=== PATIENT | female | born 1975 | race Caucasian/White ===

== ENCOUNTER 2018-06-03 12:12 | Emergency (ER) | payer OTHER ==
--- NOTE | 2018-06-03 12:40 | ED ---
Extremity Problem HPI - General Chief complaint: Extremity Problem,Nontraumatic Stated complaint: Extremity pain Time Seen by Provider: 06/03/18 12:18 Source: patient Mode of arrival: ambulatory Limitations: no limitations - History of Present Illness Initial comments: 43-year-old female presents for bilateral upper and lower extremity neuropathy- like symptoms for last 3-4 weeks. Patient states it started with tingling in her hands and now more of a burning sensation in her hands mainly in the first and second digits along with her toes. Patient states it's painful to do any activity especially ambulation. Patient states it does worsen she is sleeping but does happen throughout the day. Patient arty the family doctor for these symptoms and had a blood workup. Patient was put on vitamins. Patient does have a history of iron deficiency anemia. Patient denies any changes to her medications. Patient denies diabetic history. No chest pain or shortness of breath patient has lost about 6 pounds in the last 4 months as well. Patient had her thyroid tested which was normal per patient. - Related Data Home Medications Medication Instructions Recorded Confirmed busPIRone HCl [Buspar] 15 mg PO DAILY 03/08/15 03/08/15 Allergies Allergy/AdvReac Type Severity Reaction Status Date / Time citalopram hydrobromide AdvReac Nausea & Verified 06/03/18 12:16 [From Celexa] Vomiting Review of Systems ROS Statement: Those systems with pertinent positive or pertinent negative responses have been documented in the HPI. ROS Other: All systems not noted in ROS Statement are negative. Past Medical History Past Medical History: Hypertension History of Any Multi-Drug Resistant Organisms: None Reported Past Surgical History: Hernia Repair Additional Past Surgical History / Comment(s): dental surgery Past Psychological History: Anxiety Smoking Status: Current every day smoker Past Alcohol Use History: Daily Past Drug Use History: Marijuana General Exam Limitations: no limitations General appearance: alert, in no apparent distress Eye exam: Present: normal appearance, PERRL, EOMI. Absent: scleral icterus, conjunctival injection, periorbital swelling ENT exam: Present: normal exam, mucous membranes moist Neck exam: Present: normal inspection. Absent: tenderness, meningismus, lymphadenopathy Respiratory exam: Present: normal lung sounds bilaterally. Absent: respiratory distress, wheezes, rales, rhonchi, stridor Cardiovascular Exam: Present: regular rate, normal rhythm, normal heart sounds. Absent: systolic murmur, diastolic murmur, rubs, gallop, clicks GI/Abdominal exam: Present: soft, normal bowel sounds. Absent: distended, tenderness, guarding, rebound, rigid Extremities exam: Present: normal inspection, full ROM, normal capillary refill. Absent: tenderness, pedal edema, joint swelling, calf tenderness Back exam: Present: normal inspection Neurological exam: Present: alert, oriented X3, CN II-XII intact, reflexes normal Expanded Patient oriented to: Present: person, place, time Sensory exam: Upper Extremity Light Touch: Normal, Upper Extremity Temperature: Normal, UE 2 Point Discrimination: Normal, Lower Extremity Light Touch: Normal, Lower Extremity Temperature: Normal, LE 2 Point Discrimination: Normal Motor strength exam: RUE: 3, LUE: 3, RLE: 3, LLE: 3 DTR: Brachioradialis (R): 2+, Brachioradialis (L): 2+, Patellar (R): 2+, Patellar (L): 2+ Eye Response: (4) open spontaneously Motor Response: (6) obeys commands Verbal Response: (5) oriented Psychiatric exam: Present: normal affect, normal mood Skin exam: Present: warm, dry, intact, normal color. Absent: rash Course Vital Signs 06/03/18 12:13 Temperature 97.9 F Pulse Rate 94 Respiratory 18 Rate Blood Pressure 135/94 O2 Sat by Pulse 98 Oximetry Medical Decision Making - Medical Decision Making discussed with dr. Guido. After reviewing labs patient will work on increasing her magnesium and taking it regularly. Patient to get her labs drawn on an outp atient basis with her family doctor in the next month to see if her electrolytes and calcium have stabilized. Patient to follow-up with family doctor and get a neurologist to see her may need an EMG in the near future. Patient understands and agrees with plan of care return if symptoms are worsening. - Lab Data Result diagrams: 06/03/18 12:30 06/03/18 12:30 Lab Results 06/03/18 06/03/18 06/03/18 Range/Units 12:30 12:30 12:30 WBC 8.2 (3.8-10.6) k/uL RBC 3.93 (3.80-5.40) m/uL Hgb 13.7 (11.4-16.0) gm/dL Hct 39.3 (34.0-46.0) % MCV 100.0 (80.0-100.0) fL MCH 34.9 (25.0-35.0) pg MCHC 34.9 (31.0-37.0) g/dL RDW 15.2 (11.5-15.5) % Plt Count 248 (150-450) k/uL Neutrophils % 69 % Lymphocytes % 21 % Monocytes % 5 % Eosinophils % 2 % Basophils % 1 % Neutrophils # 5.7 (1.3-7.7) k/uL Lymphocytes # 1.8 (1.0-4.8) k/uL Monocytes # 0.4 (0-1.0) k/uL Eosinophils # 0.2 (0-0.7) k/uL Basophils # 0.1 (0-0.2) k/uL Macrocytosis Slight Sodium 143 (137-145) mmol/L Potassium 3.5 (3.5-5.1) mmol/L Chloride 108 H (98-107) mmol/L Carbon Dioxide 21 L (22-30) mmol/L Anion Gap 14 mmol/L BUN 11 (7-17) mg/dL Creatinine 0.84 (0.52-1.04) mg/dL Est GFR (CKD-EPI)AfAm >90 (>60 ml/min/1.73 sqM) Est GFR (CKD-EPI)NonAf 85 (>60 ml/min/1.73 sqM) Glucose 87 (74-99) mg/dL Plasma Lactic Acid Delroy (0.7-2.0) mmol/L Calcium 11.0 H (8.4-10.2) mg/dL Magnesium 1.0 L (1.6-2.3) mg/dL Total Bilirubin 0.9 (0.2-1.3) mg/dL AST 64 H (14-36) U/L ALT 38 (9-52) U/L Alkaline Phosphatase 125 (38-126) U/L Total Protein 7.4 (6.3-8.2) g/dL Albumin 3.7 (3.5-5.0) g/dL Urine Color Yellow Urine Appearance Cloudy H (Clear) Urine pH 6.0 (5.0-8.0) Ur Specific [place] 1.021 (1.001-1.035) Urine Protein 1+ H (Negative) Urine Glucose (UA) Negative (Negative) Urine Ketones 1+ H (Negative) Urine Blood Negative (Negative) Urine Nitrite Negative (Negative) Urine Bilirubin Negative (Negative) Urine Urobilinogen 2.0 (<2.0) mg/dL Ur Leukocyte Esterase Negative (Negative) Urine WBC 12 H (0-5) /hpf Ur Squamous Epith Cells 4 (0-4) /hpf Urine Bacteria Rare H (None) /hpf Cellular Casts 7 (0) /lpf Hyaline Casts 31 H (0-2) /lpf Urine Mucus Occasional H (None) /hpf Urine HCG, Qual (Not Detectd) Urine Opiates Screen Not Detected (NotDetected) Ur Oxycodone Screen Not Detected (NotDetected) Urine Methadone Screen Not Detected (NotDetected) Ur Propoxyphene Screen Not Detected (NotDetected) Ur Barbiturates Screen Not Detected (NotDetected) U Tricyclic Antidepress Not Detected (NotDetected) Ur Phencyclidine Scrn Not Detected (NotDetected) Ur Amphetamines Screen Not Detected (NotDetected) U Methamphetamines Scrn Not Detected (NotDetected) U Benzodiazepines Scrn Detected H (NotDetected) Urine Cocaine Screen Not Detected (NotDetected) U Marijuana (THC) Screen Detected H (NotDetected) 06/03/18 06/03/18 Range/Units 12:30 12:30 WBC (3.8-10.6) k/uL RBC (3.80-5.40) m/uL Hgb (11.4-16.0) gm/dL Hct (34.0-46.0) % MCV (80.0-100.0) fL MCH (25.0-35.0) pg MCHC (31.0-37.0) g/dL RDW (11.5-15.5) % Plt Count (150-450) k/uL Neutrophils % % Lymphocytes % % Monocytes % % Eosinophils % % Basophils % % Neutrophils # (1.3-7.7) k/uL Lymphocytes # (1.0-4.8) k/uL Monocytes # (0-1.0) k/uL Eosinophils # (0-0.7) k/uL Basophils # (0-0.2) k/uL Macrocytosis Sodium (137-145) mmol/L Potassium (3.5-5.1) mmol/L Chloride (98-107) mmol/L Carbon Dioxide (22-30) mmol/L Anion Gap mmol/L BUN (7-17) mg/dL Creatinine (0.52-1.04) mg/dL Est GFR (CKD-EPI)AfAm (>60 ml/min/1.73 sqM) Est GFR (CKD-EPI)NonAf (>60 ml/min/1.73 sqM) Glucose (74-99) mg/dL Plasma Lactic Acid Delroy 1.1 (0.7-2.0) mmol/L Calcium (8.4-10.2) mg/dL Magnesium (1.6-2.3) mg/dL Total Bilirubin (0.2-1.3) mg/dL AST (14-36) U/L ALT (9-52) U/L Alkaline Phosphatase (38-126) U/L Total Protein (6.3-8.2) g/dL Albumin (3.5-5.0) g/dL Urine Color Urine Appearance (Clear) Urine pH (5.0-8.0) Ur Specific [place] (1.001-1.035) Urine Protein (Negative) Urine Glucose (UA) (Negative) Urine Ketones (Negative) Urine Blood (Negative) Urine Nitrite (Negative) Urine Bilirubin (Negative) Urine Urobilinogen (<2.0) mg/dL Ur Leukocyte Esterase (Negative) Urine WBC (0-5) /hpf Ur Squamous Epith Cells (0-4) /hpf Urine Bacteria (None) /hpf Cellular Casts (0) /lpf Hyaline Casts (0-2) /lpf Urine Mucus (None) /hpf Urine HCG, Qual Not Detected (Not Detectd) Urine Opiates Screen (NotDetected) Ur Oxycodone Screen (NotDetected) Urine Methadone Screen (NotDetected) Ur Propoxyphene Screen (NotDetected) Ur Barbiturates Screen (NotDetected) U Tricyclic Antidepress (NotDetected) Ur Phencyclidine Scrn (NotDetected) Ur Amphetamines Screen (NotDetected) U Methamphetamines Scrn (NotDetected) U Benzodiazepines Scrn (NotDetected) Urine Cocaine Screen (NotDetected) U Marijuana (THC) Screen (NotDetected) Disposition Clinical Impression: Neuropathy, Hypomagnesemia, Hypercalcemia Disposition: HOME SELF-CARE Condition: Good Additional Instructions: pt may need to f/u with neurology and may need EMG. pt to have f/u lab with pcp on outpatient basis Is patient prescribed a controlled substance at d/c from ED?: No Referrals: Berhane Beasley DO [Primary Care Provider] - 1-2 days Time of Disposition: 14:04
[2018-06-03 13:10] LABS: Basophils # (A) 0.1 k/uL (0-0.2); Basophils % (A) 1 %; Eosinophils # (A) 0.2 k/uL (0-0.7); Eosinophils % (A) 2 %; HCT 39.3 % (34.0-46.0); HGB 13.7 gm/dL (11.4-16.0); Lymphocytes # (A) 1.8 k/uL (1.0-4.8); Lymphocytes % (A) 21 %; MCH 34.9 pg (25.0-35.0); MCHC 34.9 g/dL (31.0-37.0); Macrocytosis Slight; Mean Platelet Volume 12.2; Monocytes # (A) 0.4 k/uL (0-1.0); Monocytes % (A) 5 %; Neutrophils # (A) 5.7 k/uL (1.3-7.7); Neutrophils % (A) 69 %; Platelet Count 248 k/uL (150-450); RBC 3.93 m/uL (3.80-5.40); RDW 15.2 % (11.5-15.5); WBC 8.2 k/uL (3.8-10.6)
[2018-06-03 13:29] LABS: ALT 38 U/L (9-52); AST 64 U/L (14-36); Albumin 3.7 g/dL (3.5-5.0); Alkaline Phosphatase 125 U/L (38-126); Anion Gap 14 mmol/L; Blood Urea Nitrogen 11 mg/dL (7-17); Carbon Dioxide 21 mmol/L (22-30); Chloride 108 mmol/L (98-107); Glucose 87 mg/dL (74-99); Potassium 3.5 mmol/L (3.5-5.1); Sodium 143 mmol/L (137-145); Total Bilirubin 0.9 mg/dL (0.2-1.3); Total Protein 7.4 g/dL (6.3-8.2)
[2018-06-03 13:31] LABS: Appearance,Urine Cloudy (Clear); Bacteria,Urine Rare /hpf; Bilirubin,Urine Negative (Negative); Blood,Urine Negative (Negative); Cellular Casts,Urine 7 /lpf (0); Color,Urine Yellow; Glucose,Urine (UA) Negative (Negative); Hyaline Casts,Urine 31 /lpf (0-2); Ketones,Urine 1+ (Negative); Leukocyte Esterase,Urine Negative (Negative); Mucus,Urine Occasional /hpf; Nitrite,Urine Negative (Negative); Protein,Urine 1+ (Negative); Specific Gravity,Urine 1.021 (1.001-1.035); Squamous Epithelial Cell,Urine 4 /hpf (0-4); WBC,Urine 12 /hpf (0-5)
[2018-06-03 13:33] LABS: Amphetamine Screen,Urine Not Detected (NotDetected); Barbiturate Screen,Urine Not Detected (NotDetected); Benzodiazepines Screen,Urine Detected (NotDetected); Cocaine Screen,Urine Not Detected (NotDetected); Methadone Screen, Urine Not Detected (NotDetected); Opiate Screen,Urine Not Detected (NotDetected); Oxycodone Screen, Urine Not Detected (NotDetected); Phencyclidine Screen,Urine Not Detected (NotDetected); Tricyclic Antidepressant,Urine Not Detected (NotDetected); Urn Cannabinoid Scrn Detected (NotDetected)
[2018-06-03 14:29] VITALS: BP 132/86; PULSE 81; RESP 16; TEMP 98.2
[2018-06-03 22:58] LABS: Vitamin D 25 Hydroxy 31.9 ng/mL (30.0-100.0)
== END 2018-06-03 14:28 | disposition home or self-care (01) ==
LOC: EC 12:12
DX: G62.9 Polyneuropathy, unspecified (principal); E83.42 Hypomagnesemia; E83.52 Hypercalcemia; F41.9 Anxiety disorder, unspecified; F17.200 Nicotine dependence, unspecified, uncomplicated; Z88.8 Allergy status to other drugs, medicaments and biological substances; Z79.899 Other long term (current) drug therapy; Z86.2 Personal history of diseases of the blood and blood-forming organs and certain disorders involving the immune mechanism
CPT/HCPCS: 36415; 80053; 80306; 81001; 81025; 82306; 82607; 83605; 83735; 85025; 87077; 87086; 87186; 99283

== ENCOUNTER 2018-08-26 21:58 | Inpatient (IN) | payer OTHER ==
[2018-08-26] MEDS ORDERED: SODIUM CHLORIDE 0.9% 1,000 ML IV ONE (22:36)
[2018-08-26] MEDS ORDERED: KETOROLAC 30 MG/ML 1 ML VIAL IVP STA (22:36)
[2018-08-26] MEDS ORDERED: ONDANSETRON 4 MG/2 ML VIAL IVP STA (22:36)
[2018-08-26 22:48] LABS: Appearance,Urine Clear (Clear); Bilirubin,Urine Negative (Negative); Blood,Urine Negative (Negative); Color,Urine Yellow; Glucose,Urine (UA) Negative (Negative); Ketones,Urine Negative (Negative); Leukocyte Esterase,Urine Negative (Negative); Nitrite,Urine Negative (Negative); Protein,Urine Negative (Negative); Specific Gravity,Urine 1.007 (1.001-1.035); Urobilinogen,Urine <2.0 mg/dL (<2.0)
[2018-08-26 23:08] LABS: Basophils # (A) 0.1 k/uL (0-0.2); Basophils % (A) 0 %; Eosinophils # (A) 0.7 k/uL (0-0.7); Eosinophils % (A) 4 %; Lymphocytes # (A) 2.3 k/uL (1.0-4.8); Lymphocytes % (A) 12 %; MCH 34.3 pg (25.0-35.0); MCHC 33.4 g/dL (31.0-37.0); MCV 102.7 fL (80.0-100.0); Macrocytosis Slight; Mean Platelet Volume 7.2; Monocytes # (A) 1.3 k/uL (0-1.0); Monocytes % (A) 7 %; Neutrophils # (A) 14.6 k/uL (1.3-7.7); Neutrophils % (A) 76 %; Platelet Count 475 k/uL (150-450); RBC 4.09 m/uL (3.80-5.40); RDW 12.9 % (11.5-15.5); WBC 19.2 k/uL (3.8-10.6)
[2018-08-26 23:19] LABS: African American GFR (CKD) >90 (>60 ml/min/1.73 sqM); Anion Gap 11 mmol/L; Blood Urea Nitrogen 8 mg/dL (7-17); Calcium 8.6 mg/dL (8.4-10.2); Carbon Dioxide 22 mmol/L (22-30); Chloride 107 mmol/L (98-107); Glucose 127 mg/dL (74-99); Potassium 3.6 mmol/L (3.5-5.1); Sodium 140 mmol/L (137-145)
--- NOTE | 2018-08-26 23:23 | ED ---
Abdominal Pain HPI - General Chief Complaint: Abdominal Pain Stated Complaint: Flank pain Time Seen by Provider: 08/26/18 22:26 Source: patient Mode of arrival: ambulatory Limitations: no limitations - History of Present Illness Initial Comments: 43-year-old female presenting with left flank pain that began 3 weeks prior. Patient states she recalled moving a potted plant outside. 2 days later she began to develop left-sided flank pain that is worsened with movement, improved but not alleviated with Aleve, it is accompanied by intermittent sporadic nausea and vomiting. The pain is sharp, stabbing, radiating to her left shoulder. She denies any fevers, chills, chest pain. She denies any urinary symptoms, constipation, diarrhea, history of inflammatory bowel disease, vaginal bleeding or vaginal discharge. Denies any similar symptoms in the past. - Related Data Home Medications Medication Instructions Recorded Confirmed ALPRAZolam [Xanax] 0.25 mg PO BID 08/26/18 08/26/18 Ferrous Sulfate [Slow Release Iron] 140 mg PO DAILY 08/26/18 08/26/18 Folic Acid 1 mg PO DAILY 08/26/18 08/26/18 Gabapentin [Neurontin] 300 mg PO HS 08/26/18 08/26/18 Magnesium Oxide [Mag-Ox] 400 mg PO DAILY 08/26/18 08/26/18 Metoprolol Tartrate [Lopressor] 50 mg PO BID 08/26/18 08/26/18 Vitamin B Complex 1 cap PO DAILY 08/26/18 08/26/18 tiZANidine [Zanaflex] 4 mg PO Q8HR PRN 08/26/18 08/26/18 Allergies Allergy/AdvReac Type Severity Reaction Status Date / Time citalopram hydrobromide AdvReac Nausea & Verified 08/26/18 22:54 [From Celexa] Vomiting Review of Systems ROS Statement: Those systems with pertinent positive or pertinent negative responses have been documented in the HPI. Review of Systems Constitutional: Denies fever, chills Eyes: Denies change in vision, Denies pain Ears, nose, mouth, throat: Denies headaches, Denies sore throat Cardiovascular: Denies chest pain. Denies palpitations Respiratory: Denies shortness of breath, Denies cough Gastrointestinal: Positive abdominal pain. Positive nausea, vomiting, denies diarrhea. Genitourinary: Denies hematuria, Denies infections Musculoskeletal: Denies pain, Denies swelling Integumentary: Denies rash Neurological: Denies headache, focal weakness, focal numbness Psychiatric: Denies anxiety, Denies depression Hematologic/Lymphatic: Denies easy bleeding or bruising ROS Other: All systems not noted in ROS Statement are negative. Past Medical History Past Medical History: Hypertension Additional Past Medical History / Comment(s): neurpathy possibly, History of Any Multi-Drug Resistant Organisms: None Reported Past Surgical History: Hernia Repair Additional Past Surgical History / Comment(s): dental surgery, Past Psychological History: Anxiety Smoking Status: Current every day smoker Past Alcohol Use History: Rare Past Drug Use History: Marijuana - Past Family History Mother Family Medical History: Hypertension Father Family Medical History: No Reported History General Exam - General Exam Comments Initial Comments: General: Awake, alert, No acute Distress HENT: Normocephalic. Atraumatic Eyes: PERRL. EOMI. No scleral icterus. No injected conjunctiva Neck: Full ROM Chest/Lungs: Clear to auscultation bilaterally. No wheezing, rhonchi, or rales Cardiac: Sinus tachycardia No murmurs or rubs Abdomen/GI: Soft, nontender, nondistended. No rebound, guarding, or rigidity. Left CVA tenderness. Positive Patrick sign Musculoskeletal: Full ROM Skin: Warm, dry, intact Neurologic: A/Ox3, no weakness, no sensory deficit, no abnormal gait, no coordination deficit Limitations: no limitations Course Vital Signs 08/26/18 08/27/18 08/27/18 22:16 02:51 04:43 Temperature 98.5 F 98.4 F 98.3 F Pulse Rate 118 H 108 H 82 Respiratory 18 17 18 Rate Blood Pressure 114/83 133/93 128/78 O2 Sat by Pulse 98 98 97 Oximetry Medical Decision Making - Medical Decision Making 43-year-old female presenting with abdominal pain and flank pain. This exam patient is tachycardic but her vital signs are otherwise stable. Patient is perk positive with a well score 1.5. She is complaining of pleuritic pain leading to her left shoulder. Abdomen very workup revealed a markedly leukocytosis as well as a d-dimer of 10.35. Patient's UA was negative for infectious process. Her lactate was 1.6. She underwent CT imaging of her abdomen as well as CTA of her chest. The remainder of her care will be followed by the overnight physician. It was reported to me that the patient's CT abdomen and pelvis showed multiple fluid collections including one on the pancreas as well as ascites and a subscapular splenic hematoma. Dr. Shah with surgery construction site manager who is okay with admitting the patient to this facility. - Lab Data Result diagrams: 08/26/18 23:00 08/26/18 23:00 Lab Results 08/26/18 08/26/18 08/26/18 Range/Units 22:22 22:22 23:00 WBC (3.8-10.6) k/uL RBC (3.80-5.40) m/uL Hgb (11.4-16.0) gm/dL Hct (34.0-46.0) % MCV (80.0-100.0) fL MCH (25.0-35.0) pg MCHC (31.0-37.0) g/dL RDW (11.5-15.5) % Plt Count (150-450) k/uL Neutrophils % % Lymphocytes % % Monocytes % % Eosinophils % % Basophils % % Neutrophils # (1.3-7.7) k/uL Lymphocytes # (1.0-4.8) k/uL Monocytes # (0-1.0) k/uL Eosinophils # (0-0.7) k/uL Basophils # (0-0.2) k/uL Macrocytosis PT (9.0-12.0) sec INR (<1.2) D-Dimer (<0.60) mg/L FEU Sodium 140 (137-145) mmol/L Potassium 3.6 (3.5-5.1) mmol/L Chloride 107 (98-107) mmol/L Carbon Dioxide 22 (22-30) mmol/L Anion Gap 11 mmol/L BUN 8 (7-17) mg/dL Creatinine 0.49 L (0.52-1.04) mg/dL Est GFR (CKD-EPI)AfAm >90 (>60 ml/min/1.73 sqM) Est GFR (CKD-EPI)NonAf >90 (>60 ml/min/1.73 sqM) Glucose 127 H (74-99) mg/dL Plasma Lactic Acid Delroy (0.7-2.0) mmol/L Calcium 8.6 (8.4-10.2) mg/dL Total Bilirubin (0.2-1.3) mg/dL Conjugated Bilirubin (0.0-0.3) mg/dL Unconjugated Bilirubin (0.0-1.1) mg/dL Delta Bilirubin (0.0-0.2) mg/dL AST (14-36) U/L ALT (9-52) U/L Alkaline Phosphatase (38-126) U/L Total Protein (6.3-8.2) g/dL Albumin (3.5-5.0) g/dL Lipase (23-300) U/L Urine Color Yellow Urine Appearance Clear (Clear) Urine pH 6.0 (5.0-8.0) Ur Specific [place] 1.007 (1.001-1.035) Urine Protein Negative (Negative) Urine Glucose (UA) Negative (Negative) Urine Ketones Negative (Negative) Urine Blood Negative (Negative) Urine Nitrite Negative (Negative) Urine Bilirubin Negative (Negative) Urine Urobilinogen <2.0 (<2.0) mg/dL Ur Leukocyte Esterase Negative (Negative) Urine HCG, Qual Not Detected (Not Detectd) 08/26/18 08/26/18 08/26/18 Range/Units 23:00 23:00 23:00 WBC 19.2 H (3.8-10.6) k/uL RBC 4.09 (3.80-5.40) m/uL Hgb 14.0 (11.4-16.0) gm/dL Hct 42.0 (34.0-46.0) % MCV 102.7 H (80.0-100.0) fL MCH 34.3 (25.0-35.0) pg MCHC 33.4 (31.0-37.0) g/dL RDW 12.9 (11.5-15.5) % Plt Count 475 H (150-450) k/uL Neutrophils % 76 % Lymphocytes % 12 % Monocytes % 7 % Eosinophils % 4 % Basophils % 0 % Neutrophils # 14.6 H (1.3-7.7) k/uL Lymphocytes # 2.3 (1.0-4.8) k/uL Monocytes # 1.3 H (0-1.0) k/uL Eosinophils # 0.7 (0-0.7) k/uL Basophils # 0.1 (0-0.2) k/uL Macrocytosis Slight PT (9.0-12.0) sec INR (<1.2) D-Dimer 10.35 H (<0.60) mg/L FEU Sodium (137-145) mmol/L Potassium (3.5-5.1) mmol/L Chloride (98-107) mmol/L Carbon Dioxide (22-30) mmol/L Anion Gap mmol/L BUN (7-17) mg/dL Creatinine (0.52-1.04) mg/dL Est GFR (CKD-EPI)AfAm (>60 ml/min/1.73 sqM) Est GFR (CKD-EPI)NonAf (>60 ml/min/1.73 sqM) Glucose (74-99) mg/dL Plasma Lactic Acid Delroy 1.6 (0.7-2.0) mmol/L Calcium (8.4-10.2) mg/dL Total Bilirubin (0.2-1.3) mg/dL Conjugated Bilirubin (0.0-0.3) mg/dL Unconjugated Bilirubin (0.0-1.1) mg/dL Delta Bilirubin (0.0-0.2) mg/dL AST (14-36) U/L ALT (9-52) U/L Alkaline Phosphatase (38-126) U/L Total Protein (6.3-8.2) g/dL Albumin (3.5-5.0) g/dL Lipase (23-300) U/L Urine Color Urine Appearance (Clear) Urine pH (5.0-8.0) Ur Specific [place] (1.001-1.035) Urine Protein (Negative) Urine Glucose (UA) (Negative) Urine Ketones (Negative) Urine Blood (Negative) Urine Nitrite (Negative) Urine Bilirubin (Negative) Urine Urobilinogen (<2.0) mg/dL Ur Leukocyte Esterase (Negative) Urine HCG, Qual (Not Detectd) 08/26/18 08/26/18 Range/Units 23:00 23:00 WBC (3.8-10.6) k/uL RBC (3.80-5.40) m/uL Hgb (11.4-16.0) gm/dL Hct (34.0-46.0) % MCV (80.0-100.0) fL MCH (25.0-35.0) pg MCHC (31.0-37.0) g/dL RDW (11.5-15.5) % Plt Count (150-450) k/uL Neutrophils % % Lymphocytes % % Monocytes % % Eosinophils % % Basophils % % Neutrophils # (1.3-7.7) k/uL Lymphocytes # (1.0-4.8) k/uL Monocytes # (0-1.0) k/uL Eosinophils # (0-0.7) k/uL Basophils # (0-0.2) k/uL Macrocytosis PT 12.2 H (9.0-12.0) sec INR 1.2 H (<1.2) D-Dimer (<0.60) mg/L FEU Sodium (137-145) mmol/L Potassium (3.5-5.1) mmol/L Chloride (98-107) mmol/L Carbon Dioxide (22-30) mmol/L Anion Gap mmol/L BUN (7-17) mg/dL Creatinine (0.52-1.04) mg/dL Est GFR (CKD-EPI)AfAm (>60 ml/min/1.73 sqM) Est GFR (CKD-EPI)NonAf (>60 ml/min/1.73 sqM) Glucose (74-99) mg/dL Plasma Lactic Acid Delroy (0.7-2.0) mmol/L Calcium (8.4-10.2) mg/dL Total Bilirubin 0.7 (0.2-1.3) mg/dL Conjugated Bilirubin 0.0 (0.0-0.3) mg/dL Unconjugated Bilirubin 0.5 (0.0-1.1) mg/dL Delta Bilirubin 0.2 (0.0-0.2) mg/dL AST 32 (14-36) U/L ALT 20 (9-52) U/L Alkaline Phosphatase 147 H (38-126) U/L Total Protein 6.3 (6.3-8.2) g/dL Albumin 2.9 L (3.5-5.0) g/dL Lipase 5761 H (23-300) U/L Urine Color Urine Appearance (Clear) Urine pH (5.0-8.0) Ur Specific [place] (1.001-1.035) Urine Protein (Negative) Urine Glucose (UA) (Negative) Urine Ketones (Negative) Urine Blood (Negative) Urine Nitrite (Negative) Urine Bilirubin (Negative) Urine Urobilinogen (<2.0) mg/dL Ur Leukocyte Esterase (Negative) Urine HCG, Qual (Not Detectd) Disposition Clinical Impression: Pancreatitis, Pancreatic cyst, Spleen hematoma Disposition: ADMITTED IP TO THIS HOSP Is patient prescribed a controlled substance at d/c from ED?: No Decision to Admit Reason: Admit from EC
[2018-08-26] MEDS ORDERED: HYDROcodone/APAP 5-325MG 1 EACH TAB PO STA (23:35)
--- NOTE | 2018-08-26 23:49 | XR ---
EXAM: XR Chest, 2 Views CLINICAL HISTORY: ITS.REASON XR Reason: Pain TECHNIQUE: Frontal and lateral views of the chest. COMPARISON: 03/08/15 FINDINGS: Lungs: Unremarkable. No consolidation. Pleural space: Unremarkable. No pneumothorax. Heart: Unremarkable. No cardiomegaly. Mediastinum: Unremarkable. Bones/joints: Unremarkable. IMPRESSION: Normal chest x-rays.
[2018-08-27 00:50] LABS: Albumin 2.9 g/dL (3.5-5.0); Bilirubin, Delta 0.2 mg/dL (0.0-0.2); Bilirubin,Unconjugated 0.5 mg/dL (0.0-1.1); Total Bilirubin 0.7 mg/dL (0.2-1.3); Total Protein 6.3 g/dL (6.3-8.2)
[2018-08-27 01:05] LABS: INR 1.2 (<1.2); Prothrombin Time 12.2 sec (9.0-12.0)
--- NOTE | 2018-08-27 01:35 | CT ---
EXAM: CT Abdomen and Pelvis With Intravenous Contrast CLINICAL HISTORY: Patient presents with left sided flank and chest pain x3 weeks. NO known injury. TECHNIQUE: Axial computed tomography images of the abdomen and pelvis with 95mL of Isovue 370 intravenous contrast. DLP is 541.7. This CT exam was performed using one or more of the following dose reduction techniques: automated exposure control, adjustment of the mA and/or kV according to patient size, and/or use of iterative reconstruction technique. Coronal and sagittal reconstructions are performed COMPARISON: No relevant prior studies available. FINDINGS: Lung bases: Small left effusion with compressive atelectasis. Mediastinum: Small hiatal hernia. ABDOMEN: Liver: Unremarkable. No mass. Gallbladder and bile ducts: Unremarkable. No calcified stones. No ductal dilation. Pancreas: Coarse calcification in the uncinate process of the pancreas suggest chronic pancreatitis. Linear cystic lesion in tail of the pancreas, appear to be communicating with pancreatic duct, best seen on series 701 image 24 is nonspecific, may suggest Intraductal papillary mucinous neoplasm. Spleen: Subcapsular hematoma predominantly in lateral aspect of the spleen measuring about 11 cm AP, 3.5 cm transverse, and 12 cm in longitudinal, best seen on series 602 image 47 and series 601 image 18. Adrenals: Unremarkable. No mass. Kidneys and ureters: Unremarkable. No solid mass. No hydronephrosis. Stomach and bowel: Several fluid collections in central upper and mid abdomen. The largest measures about 8.6 cm transverse, 5.1 cm AP and 8.7 cm craniocaudal, best seen on series 602 image 21 and 601 image 32, causing mass effect on adjacent structures, anteriorly compresses and displaces the stomach. Smaller linear collection abutting the proximal descending colon, best seen on series 603 images 81-88, may be responsible for reactive colitis. Fistula cannot be excluded. Several loops of jejunum has mild circumferential wall thickening, measuring up to 8 mm, likely due to underdistention. Jejunitis cannot be excluded. Mild colonic diverticulosis. Mild circumferential wall thickening of the descending or distal colon. PELVIS: Appendix: Normal appendix. Bladder: Unremarkable. No mass. Reproductive: Unremarkable as visualized. ABDOMEN and PELVIS: Intraperitoneal space: Small to moderate ascites mostly in the pelvis measuring 10 Hounsfield units. No free air. Bones/joints: No acute fracture. No dislocation. Soft tissues: Unremarkable. Vasculature: Unremarkable. No abdominal aortic aneurysm. Lymph nodes: Unremarkable. No enlarged lymph nodes. IMPRESSION: 1. Large Subcapsular hematoma predominantly in lateral aspect of the spleen 2. Coarse calcification in the uncinate process of the pancreas suggest chronic pancreatitis. Findings suggest acute pancreatitis as well. Please correlate with clinical and laboratory findings. 3. Linear cystic lesion in tail of the pancreas, appear to be communicating with pancreatic duct, may suggest Intraductal papillary mucinous neoplasm. Less likely etiologies cannot be excluded. 4. Several fluid collections in central upper and mid abdomen concerning for pseudocyst versus abscess. The largest measures about 8.6 cm transverse, 5.1 cm AP and 8.7 cm craniocaudal, causing mass effect on adjacent structures, anteriorly compresses and displaces the stomach. Smaller linear collection abutting the proximal descending colon, may be responsible for reactive colitis. Fistula cannot be excluded. 5. Several loops of jejunum has mild circumferential wall thickening, measuring up to 8 mm, likely due to underdistention. Jejunitis cannot be excluded. 6. Small left effusion with compressive atelectasis. <MYCVCSECTION> Critical Value Communications 08/27/18 01:37 Call Doctor Regarding Active Bleeding in any site, called Dr. Morris on 08/27 01:36 (-04:00)
--- NOTE | 2018-08-27 01:46 | CT ---
EXAM: CT Angiography Chest With Intravenous Contrast CLINICAL HISTORY: left sided flank and chest pain x3 weeks. NO known injury. TECHNIQUE: Axial computed tomographic angiography images of the chest with 95mL of Isovue 370 intravenous contrast using pulmonary embolism protocol. DLP is 176.3 mGy-cm. This CT exam was performed using one or more of the following dose reduction techniques: automated exposure control, adjustment of the mA and/or kV according to patient size, and/or use of iterative reconstruction technique. MIP reconstructed images were created and reviewed. Coronal and sagittal reformatted images were created and reviewed. COMPARISON: No relevant prior studies available. FINDINGS: Pulmonary arteries: Unremarkable. No pulmonary embolism. Aorta: No acute findings. No thoracic aortic aneurysm. Lungs: See below. Pleural space: Small left pleural effusion with compressive atelectasis. No pneumothorax. Heart: Unremarkable. No cardiomegaly. No significant pericardial effusion. No evidence of RV dysfunction. Bones/joints: No acute fracture. No dislocation. Soft tissues: Unremarkable. Lymph nodes: Unremarkable. No enlarged lymph nodes. Other findings: Please refer to report of CT abdomen and pelvis from the same time For detailed abdominal findings. IMPRESSION: 1. Small left pleural effusion with compressive atelectasis. 2. No pulmonary embolism. Normal thoracic aorta.
[2018-08-27] MEDS ORDERED: ONDANSETRON 4 MG/2 ML VIAL IVP PRN (03:35)
[2018-08-27] MEDS ORDERED: NALOXONE 0.4 MG/ML 1 ML VIAL IV PRN (03:35)
[2018-08-27] MEDS ORDERED: ACETAMINOPHEN TAB 325 MG TAB PO PRN (03:35)
[2018-08-27] MEDS ORDERED: NICOTINE 14MG/24HR PATCH TRANSDERM STA (03:38)
[2018-08-27] MEDS ORDERED: tiZANidine 4 MG TAB PO PRN (03:38)
[2018-08-27] MEDS ORDERED: LORazepam 2 MG/ML INJ IV PRN ×3 (03:40)
[2018-08-27] MEDS ORDERED: THIAMINE 100 MG/ML 2 ML VIAL IM STA (03:40)
[2018-08-27] MEDS ORDERED: SODIUM CHLORIDE 0.9% 1,000 ML IV SCH (03:45)
[2018-08-27] MEDS: MORPHINE SULFATE 4 MG/ML SYRINGE IV PRN ×4 (04:06→15:38)
[2018-08-27 08:55] VITALS: TEMP 98
[2018-08-27] MEDS ORDERED: FERROUS SULFATE ORAL ELIXIR 300 MG/5 ML CUP PO SCH (09:00)
[2018-08-27] MEDS ORDERED: FOLIC ACID 1 MG TAB PO SCH (09:00)
[2018-08-27] MEDS ORDERED: MAGNESIUM OXIDE 400 MG TAB PO SCH (09:00)
[2018-08-27] MEDS ORDERED: METOPROLOL TARTRATE 50 MG TAB PO SCH (09:00)
[2018-08-27] MEDS ORDERED: ALPRAZolam 0.25 MG TAB PO SCH (09:00)
--- NOTE | 2018-08-27 10:17 | P.GSCN ---
History of Present Illness Consult date: 08/27/18 History of present illness: 43-year-old female presents to the emergency department with 3-1/2 weeks of abdominal pain that has slowly been increasing in severity. She states that she initially believed this to be secondary to a [employer] project that she is currently working on. She complained of some nausea but denied any emesis episodes. She denied any change in appetite. She states that she does take chronic iron supplementation and did have some constipation but that is since been relieved. On workup in the emergency department, the patient did have a CT of the abdomen and pelvis. The CT did have notable significant findings of multiple fluid collections throughout the abdomen. She is noted to have a subcapsular hematoma of the spleen along with a large fluid collection adjacent to the pancreas and compressing the stomach. This CT read from radiology is concerning for possible IPMN along with a pancreatic pseudocysts or possible abscess. The patient denies having any history of pancreatitis in the past. She denies excessive all call use. She denies any history with gallbladder disease. She she states her only abdominal surgery was an umbilical hernia repair. She has never had an upper and lower endoscopy. Review of Systems All systems: negative Past Medical History Past Medical History: Hypertension Additional Past Medical History / Comment(s): neurpathy possibly, anemia History of Any Multi-Drug Resistant Organisms: None Reported Past Surgical History: Hernia Repair Additional Past Surgical History / Comment(s): dental surgery, Past Psychological History: Anxiety Smoking Status: Current every day smoker Past Alcohol Use History: Rare Past Drug Use History: Marijuana - Past Family History Mother Family Medical History: Hypertension Father Family Medical History: No Reported History Medications and Allergies Home Medications Medication Instructions Recorded Confirmed Type ALPRAZolam [Xanax] 0.25 mg PO BID 08/26/18 08/26/18 History Ferrous Sulfate [Slow Release Iron] 140 mg PO DAILY 08/26/18 08/26/18 History Folic Acid 1 mg PO DAILY 08/26/18 08/26/18 History Gabapentin [Neurontin] 300 mg PO HS 08/26/18 08/26/18 History Magnesium Oxide [Mag-Ox] 400 mg PO DAILY 08/26/18 08/26/18 History Metoprolol Tartrate [Lopressor] 50 mg PO BID 08/26/18 08/26/18 History Vitamin B Complex 1 cap PO DAILY 08/26/18 08/26/18 History tiZANidine [Zanaflex] 4 mg PO Q8HR PRN 08/26/18 08/26/18 History Allergies Allergy/AdvReac Type Severity Reaction Status Date / Time citalopram hydrobromide AdvReac Nausea & Verified 08/26/18 22:54 [From Celexa] Vomiting Surgical - Exam Osteopathic Statement: *. No significant issues noted on an osteopathic structural exam other than those noted in the History and Physical/Consult. Vital Signs Temp Pulse Resp BP Pulse Ox 98.5 F 118 H 18 114/83 98 08/26/18 22:16 08/26/18 22:16 08/26/18 22:16 08/26/18 22:16 08/26/18 22:16 - General well nourished, no distress - Eyes PERRL - ENT Poor dentition - Neck no masses, no bruits, trachea midline - Respiratory No difficulty with respiration - Abdomen Soft, generalized tenderness to palpation, nondistended, no rebound, no guarding - Psychiatric oriented to time, oriented to person, oriented to place Results - Labs 08/26/18 23:00 08/26/18 23:00 Abnormal Lab Results - Last 24 Hours (Table) 08/26/18 08/26/18 08/26/18 Range/Units 23:00 23:00 23:00 WBC 19.2 H (3.8-10.6) k/uL MCV 102.7 H (80.0-100.0) fL Plt Count 475 H (150-450) k/uL Neutrophils # 14.6 H (1.3-7.7) k/uL Monocytes # 1.3 H (0-1.0) k/uL PT (9.0-12.0) sec INR (<1.2) D-Dimer 10.35 H (<0.60) mg/L FEU Creatinine 0.49 L (0.52-1.04) mg/dL Glucose 127 H (74-99) mg/dL Alkaline Phosphatase (38-126) U/L Albumin (3.5-5.0) g/dL Lipase (23-300) U/L 08/26/18 08/26/18 Range/Units 23:00 23:00 WBC (3.8-10.6) k/uL MCV (80.0-100.0) fL Plt Count (150-450) k/uL Neutrophils # (1.3-7.7) k/uL Monocytes # (0-1.0) k/uL PT 12.2 H (9.0-12.0) sec INR 1.2 H (<1.2) D-Dimer (<0.60) mg/L FEU Creatinine (0.52-1.04) mg/dL Glucose (74-99) mg/dL Alkaline Phosphatase 147 H (38-126) U/L Albumin 2.9 L (3.5-5.0) g/dL Lipase 5761 H (23-300) U/L Diabetes panel 08/26/18 08/26/18 Range/Units 23:00 23:00 Sodium 140 (137-145) mmol/L Potassium 3.6 (3.5-5.1) mmol/L Chloride 107 (98-107) mmol/L Carbon Dioxide 22 (22-30) mmol/L BUN 8 (7-17) mg/dL Creatinine 0.49 L (0.52-1.04) mg/dL Glucose 127 H (74-99) mg/dL Calcium 8.6 (8.4-10.2) mg/dL AST 32 (14-36) U/L ALT 20 (9-52) U/L Alkaline Phosphatase 147 H (38-126) U/L Total Protein 6.3 (6.3-8.2) g/dL Albumin 2.9 L (3.5-5.0) g/dL Calcium panel 08/26/18 08/26/18 Range/Units 23:00 23:00 Calcium 8.6 (8.4-10.2) mg/dL Albumin 2.9 L (3.5-5.0) g/dL Pituitary panel 08/26/18 Range/Units 23:00 Sodium 140 (137-145) mmol/L Potassium 3.6 (3.5-5.1) mmol/L Chloride 107 (98-107) mmol/L Carbon Dioxide 22 (22-30) mmol/L BUN 8 (7-17) mg/dL Creatinine 0.49 L (0.52-1.04) mg/dL Glucose 127 H (74-99) mg/dL Calcium 8.6 (8.4-10.2) mg/dL Adrenal panel 08/26/18 08/26/18 Range/Units 23:00 23:00 Sodium 140 (137-145) mmol/L Potassium 3.6 (3.5-5.1) mmol/L Chloride 107 (98-107) mmol/L Carbon Dioxide 22 (22-30) mmol/L BUN 8 (7-17) mg/dL Creatinine 0.49 L (0.52-1.04) mg/dL Glucose 127 H (74-99) mg/dL Calcium 8.6 (8.4-10.2) mg/dL Total Bilirubin 0.7 (0.2-1.3) mg/dL AST 32 (14-36) U/L ALT 20 (9-52) U/L Alkaline Phosphatase 147 H (38-126) U/L Total Protein 6.3 (6.3-8.2) g/dL Albumin 2.9 L (3.5-5.0) g/dL - Imaging CT scan - abdomen: report reviewed, image reviewed CT scan - pelvis: report reviewed, image reviewed (CT of the abdomen and pelvis was reviewed. Multiple fluid collections are noted throughout the abdomen. Suspicious for abscess versus pseudocyst. Also noted to have a subcapsular hematoma of the spleen.) Assessment and Plan (1) Pancreatic pseudocyst Narrative/Plan: 43-year-old female with multiple intra-abdominal fluid collections and possibility of pancreatic pseudocyst and possible IPMN - I had a long discussion with the patient and the patient's significant other. At this point, the patient will likely need further workup to evaluate pseudocyst versus abscess and possibility of IPMN mass within the pancreas. Due to these acute findings and significant symptoms that brought the patient into the emergency department, I would recommend transfer to a tertiary care center with a hepatobiliary team for further evaluation. The patient may require an endoscopic ultrasound that is unavailable in our institution. She may also require advanced GI for evaluation of drainage of the pseudocyst versus abscess. I discussed this in depth with the patient and the patient's significant other. I also discussed this case with the patient's admitting physician. We will plan for transfer to a tertiary care center for further evaluation and workup. Current Visit: Yes Status: Acute Code(s): K86.3 - PSEUDOCYST OF PANCREAS SNOMED Code(s): 562334620
[2018-08-27 12:03] VITALS: BMI 17.4
[2018-08-27] MEDS: FOLIC ACID-VIT B COMPLEX-VIT C 1 CAP PO SCH ×2 (12:15→15:07)
[2018-08-27] MEDS ORDERED: NICOTINE 14MG/24HR PATCH TRANSDERM SCH ×2 (12:30→14:15)
[2018-08-27] MEDS ORDERED: metroNIDAZOLE-NS PMX 500 MG in SALINE 1 100ML.BAG IVPB SCH (14:00)
--- NOTE | 2018-08-27 14:24 | P.HPIM ---
History of Present Illness H&P Date: 08/27/18 Chief Complaint: Nausea vomiting History of presenting complaint: This is a 43-year-old patient of Dr. Beasley. Chronic stable medical conditions include hypertension, peripheral neuropathy, anemia. Patient's symptoms first came to surface about 3 and a of weeks ago when she was picking up a pot and felt a muscle pull which she describes in the abdomen. Subsequently abdominal pain continued to get worse. Subsequently she started having nausea and vomiting specially for last 1 week. Not able to keep much down. Also developed fevers and bouts of perspiration. Normally has about 1 or 2 bowel movements a day. Patient's had infected teeth for about a year and recently had to 3 teeth extracted. The baby also noted that patient was when going through divorce abou t 5 years ago was drinking quite a bit of whiskey for 2 years and also for last 5 years drinks at least a bottle wine a day. Patient also has been losing weight has lost about and 15 pounds. Patient presented to ER. ER physician spoke to from surgery and the patient was admitted to the floor. Patient was noted to have some fluid pockets in the computed tomography scan, abnormality of the pancreas, and a hematoma in the spleen. Patient's and [id number] are present in the room with me during the interview. Review of systems: GEN.: Weak, tired loss of appetite and weight loss EYES: None HEENT: None NECK: None RESPIRATORY: None CARDIOVASCULAR: None GASTROINTESTINAL: As above GENITOURINARY: None MUSCULOSKELETAL: None LYMPHATICS: None HEMATOLOGICAL: None PSYCHIATRY: None NEUROLOGICAL: None Past medical history: Hypertension, peripheral neuropathy, anemia Social history: Patient is a . Does not work also the house. Smoke anywhere from a half to 1 pack a day for over 30 years. About 5 days ago was up to quit up significant amount of whiskey for 2 years. And currently drinking at least 1 bottle wine a day. Family history: Hypertension Physical examination: VITAL SIGNS: 98.5, 118, 18, 104/83, 98% room air GENERAL: 10 built BMI 17.4 somewhat investigated with poor muscle mass and locked like a body fat, sitting up, uncomfortable. EYES: Pupils equal. Conjunctiva palel. HEENT: External appearance of nose and ears normal, oral cavity poor hygiene and's carious' teeth. NECK: JVD not raised; masses not palpable. HEART: First and second heart sounds are normal; no edema. LUNGS: Respiratory rate normal; decreased breath sounds some wheezing. ABDOMEN: Soft, some distention, diffuse tenderness no obvious guarding or rigidity, liver spleen not palpable, no masses palpable. PSYCH: Alert and oriented x3; mood and affect anxiousl. NEUROLOGICAL: Cranial nerves grossly intact; no facial asymmetry, power and sensation grossly intact. LYMPHATICS: No lymph nodes palpable in the axilla and neck Investigations, reviewed in the clinical context: White count 90.2, hemoglobin 14, platelets 475, pro time 12.2, potassium 3.6, creatinine 0.49 Albumin 2.9 Lipase 5761 Chest x-ray films personally reviewed by me shows minimal hyperinflation lung marin are clear Chest CTA-negative for PE Abdominal CT shows coarse calcification in the uncinate process of the pancreas^, the new cystic lesion tail of the pancreas with suggestion of intraductal papillary mucinous neoplasm, soft Hematoma Predominantly Lateral Aspect of the Spleen about 11 Cm x 3.5 Cm x 12 Cm. Several Fluid Collections in Central Upper and Mid Abdomen Fistula Cannot Be Excluded and Several Loops of Jejunum with Mild Circumferential Wall Thickening. Assessment: -This Is a Patient with a Fair History of Increased Alcohol Intake, Who's Been Losing Weight, Fever or Chills. Evidence of Multiple Fluid Pockets in Intra- Abdominally. Calcification of the Pancreas Suggestive of Chronic Peritonitis. Patient Never Had a Pseudocyst That Got Infected. The Location of the Hematoma in the Pancreas Suggestive of Isolated Bleed Possibly Given for Pro Time. -Intra-Abdominal Multiple Abscess -Acute and Chronic Pancreatitis from Alcoholism -Severe Routine Calorie Malnutrition from Decreased Oral Intake -Chronic Nicotine Dependence Patient's Cigarette Smoker -Chronic Alcohol Dependence -Essential Hypertension -Peripheral Neuropathy Nutritional -COPD in a Current Smoker Plan: Care Was Discussed with Dr. Altamirano from General Surgery. We Both Agree That Patient Will Need a Higher Level of Care and He Spoke to except the Physician at [facility] and Patient Will Be Transferred There. I Did Speak to the Patient and the Family at Length. They're Agreeable about the Same 2. We'll Start the Patient on IV Zosyn and IV Flagyl. Patient Also Getting IV Fluids. Patient Be Put on Ice Chips. Also Start the Patient on DuoNeb. Smoking Cessation Counseling: This Was Done with the Patient. Nicotine Patch Will Be Started. More Than 3 Minutes Was Spent on aspect of the case Past Medical History Past Medical History: Hypertension Additional Past Medical History / Comment(s): neurpathy possibly, anemia History of Any Multi-Drug Resistant Organisms: None Reported Past Surgical History: Hernia Repair Additional Past Surgical History / Comment(s): dental surgery, Past Psychological History: Anxiety Smoking Status: Current every day smoker Past Alcohol Use History: Rare Past Drug Use History: Marijuana - Past Family History Mother Family Medical History: Hypertension Father Family Medical History: No Reported History Medications and Allergies Home Medications Medication Instructions Recorded Confirmed Type ALPRAZolam [Xanax] 0.25 mg PO BID 08/26/18 08/26/18 History Ferrous Sulfate [Slow Release Iron] 140 mg PO DAILY 08/26/18 08/26/18 History Folic Acid 1 mg PO DAILY 08/26/18 08/26/18 History Gabapentin [Neurontin] 300 mg PO HS 08/26/18 08/26/18 History Magnesium Oxide [Mag-Ox] 400 mg PO DAILY 08/26/18 08/26/18 History Metoprolol Tartrate [Lopressor] 50 mg PO BID 08/26/18 08/26/18 History Vitamin B Complex 1 cap PO DAILY 08/26/18 08/26/18 History tiZANidine [Zanaflex] 4 mg PO Q8HR PRN 08/26/18 08/26/18 History Allergies Allergy/AdvReac Type Severity Reaction Status Date / Time citalopram hydrobromide AdvReac Nausea & Verified 08/26/18 22:54 [From Celexa] Vomiting Physical Exam Vitals: Vital Signs Temp Pulse Pulse Resp BP BP Pulse Ox 08/27/18 08:05 95 18 08/27/18 07:00 98.0 F 95 101/71 96 08/27/18 04:57 98.6 F 102 H 120/85 97 08/27/18 04:43 98.3 F 82 18 128/78 97 08/27/18 02:51 98.4 F 108 H 17 133/93 98 08/26/18 22:16 98.5 F 118 H 18 114/83 98 Intake and Output 08/26/18 08/27/18 08/27/18 22:59 06:59 14:59 Other: Weight 43.091 kg 43.091 kg Results CBC & Chem 7: 08/26/18 23:00 08/26/18 23:00 Labs: Abnormal Lab Results - Last 24 Hours (Table) 08/26/18 08/26/18 08/26/18 Range/Units 23:00 23:00 23:00 WBC 19.2 H (3.8-10.6) k/uL MCV 102.7 H (80.0-100.0) fL Plt Count 475 H (150-450) k/uL Neutrophils # 14.6 H (1.3-7.7) k/uL Monocytes # 1.3 H (0-1.0) k/uL PT (9.0-12.0) sec INR (<1.2) D-Dimer 10.35 H (<0.60) mg/L FEU Creatinine 0.49 L (0.52-1.04) mg/dL Glucose 127 H (74-99) mg/dL Alkaline Phosphatase (38-126) U/L Albumin (3.5-5.0) g/dL Lipase (23-300) U/L 08/26/18 08/26/18 Range/Units 23:00 23:00 WBC (3.8-10.6) k/uL MCV (80.0-100.0) fL Plt Count (150-450) k/uL Neutrophils # (1.3-7.7) k/uL Monocytes # (0-1.0) k/uL PT 12.2 H (9.0-12.0) sec INR 1.2 H (<1.2) D-Dimer (<0.60) mg/L FEU Creatinine (0.52-1.04) mg/dL Glucose (74-99) mg/dL Alkaline Phosphatase 147 H (38-126) U/L Albumin 2.9 L (3.5-5.0) g/dL Lipase 5761 H (23-300) U/L
[2018-08-27 15:17] VITALS: BP 101/70; PULSE 96; RESP 16
[2018-08-27] MEDS ORDERED: PIPERACILLIN-TAZOBACTAM 3.375 GM in SODIUM CHLORIDE 0.9% 100 ML IVPB SCH (16:00)
[2018-08-27] MEDS ORDERED: THIAMINE 100 MG TAB PO SCH (17:00)
[2018-08-27] MEDS ORDERED: GABAPENTIN 300 MG CAP PO SCH (21:00)
--- NOTE | 2018-08-28 00:13 | P.DS ---
Providers Date of admission: 08/27/18 03:38 Expected date of discharge: 08/27/18 Attending physician: Giovanni Salinas Consults: 08/27/18 03:37 Consult Physician Urgent Consulting Provider: Richelle Altamirano Consult Reason/Comments: splenic hemorrhage Do you want consulting provider notified?: Already Contacted Primary care physician: Berhane Ramos [facility] Course: Discharge diagnosis: -This Is a Patient with a Fair History of Increased Alcohol Intake, Who's Been Losing Weight, Fever or Chills. Evidence of Multiple Fluid Pockets in Intra- Abdominally. Calcification of the Pancreas Suggestive of Chronic Peritonitis. Patient Never Had a Pseudocyst That Got Infected. The Location of the Hematoma in the Pancreas Suggestive of Isolated Bleed Possibly Given for Pro Time. -Intra-Abdominal Multiple Abscess -Acute and Chronic Pancreatitis from Alcoholism -Severe Routine Calorie Malnutrition from Decreased Oral Intake -Chronic Nicotine Dependence Patient's Cigarette Smoker -Chronic Alcohol Dependence -Essential Hypertension -Peripheral Neuropathy Nutritional -COPD in a Current Smoker Hospital course: This is a 43-year-old patient of Dr. Beasley. Chronic stable medical conditions include hypertension, peripheral neuropathy, anemia. Patient's symptoms first came to surface about 3 and a of weeks ago when she was picking up a pot and felt a muscle pull which she describes in the abdomen. Subsequently abdominal pain continued to get worse. Subsequently she started having nausea and vomiting specially for last 1 week. Not able to keep much down. Also developed fevers and bouts of perspiration. Normally has about 1 or 2 bowel movements a day. Patient's had infected teeth for about a year and recently had to 3 teeth extracted. The baby also noted that patient was when going through divorce about 5 years ago was drinking quite a bit of whiskey for 2 years and also for last 5 years drinks at least a bottle wine a day. Patient also has been losing weight has lost about and 15 pounds. Patient presented to ER. ER physician spoke to from surgery and the patient was admitted to the floor. Patient was noted to have some fluid pockets in the computed tomography scan, abnormality of the pancreas, and a hematoma in the spleen. Patient's and [id number] are present in the room with me during the interview. Physical examination: VITAL SIGNS: 98.5, 118, 18, 104/83, 98% room air GENERAL: thin BMI 17.4 somewhat investigated with poor muscle mass and locked like a body fat, sitting up, uncomfortable. EYES: Pupils equal. Conjunctiva palel. HEENT: External appearance of nose and ears normal, oral cavity poor hygiene and's carious' teeth. NECK: JVD not raised; masses not palpable. HEART: First and second heart sounds are normal; no edema. LUNGS: Respiratory rate normal; decreased breath sounds some wheezing. ABDOMEN: Soft, some distention, diffuse tenderness no obvious guarding or rigidity, liver spleen not palpable, no masses palpable. PSYCH: Alert and oriented x3; mood and affect anxiousl. NEUROLOGICAL: Cranial nerves grossly intact; no facial asymmetry, power and sensation grossly intact. LYMPHATICS: No lymph nodes palpable in the axilla and neck Investigations, reviewed in the clinical context: White count 19.2, hemoglobin 14, platelets 475, pro time 12.2, potassium 3.6, creatinine 0.49 Albumin 2.9 Lipase 5761 Chest x-ray films personally reviewed by me shows minimal hyperinflation lung marin are clear Chest CTA-negative for PE Abdominal CT shows coarse calcification in the uncinate process of the pancreas^, the new cystic lesion tail of the pancreas with suggestion of intraductal papillary mucinous neoplasm, soft Hematoma Predominantly Lateral Aspect of the Spleen about 11 Cm x 3.5 Cm x 12 Cm. Several Fluid Collections in Central Upper and Mid Abdomen Fistula Cannot Be Excluded and Several Loops of Jejunum with Mild Circumferential Wall Thickening. Plan: Care Was Discussed with Dr. Altamirano from General Surgery. We Both Agree That Patient Will Need a Higher Level of Care and He Spoke to except the Physician at and Patient Will Be Transferred There. I Did Speak to the Patient and the Family at Length. They're Agreeable about the Same 2. We'll Start the Patient on IV Zosyn and IV Flagyl. Patient Also Getting IV Fluids. Patient Be Put on Ice Chips. Also Start the Patient on DuoNeb. Disposition: [facility] Patient Condition at Discharge: Undetermined Plan - Discharge Summary New Discharge Prescriptions: No Action tiZANidine [Zanaflex] 4 mg PO Q8HR PRN PRN Reason: Muscle Spasm Vitamin B Complex 1 cap PO DAILY Ferrous Sulfate [Slow Release Iron] 140 mg PO DAILY ALPRAZolam [Xanax] 0.25 mg PO BID Metoprolol Tartrate [Lopressor] 50 mg PO BID Magnesium Oxide [Mag-Ox] 400 mg PO DAILY Gabapentin [Neurontin] 300 mg PO HS Folic Acid 1 mg PO DAILY Discharge Medication List ALPRAZolam [Xanax] 0.25 mg PO BID 08/26/18 [History] Ferrous Sulfate [Slow Release Iron] 140 mg PO DAILY 08/26/18 [History] Folic Acid 1 mg PO DAILY 08/26/18 [History] Gabapentin [Neurontin] 300 mg PO HS 08/26/18 [History] Magnesium Oxide [Mag-Ox] 400 mg PO DAILY 08/26/18 [History] Metoprolol Tartrate [Lopressor] 50 mg PO BID 08/26/18 [History] Vitamin B Complex 1 cap PO DAILY 08/26/18 [History] tiZANidine [Zanaflex] 4 mg PO Q8HR PRN 08/26/18 [History] Follow up Appointment(s)/Referral(s): Berhane Beasley DO [Primary Care Provider] - 1-2 days Discharge Disposition: OTHER INSTITUTION NOT DEFINED
== END 2018-08-27 15:40 | disposition short-term general hospital (02) | DRG 438 ==
LOC: EC 21:58 → 4SSUR 08-27 03:38
PROVIDERS: ADMIT Hospitalist; ATTEND Hospitalist
DX: K85.90 Acute pancreatitis without necrosis or infection, unspecified (principal); K65.1 Peritoneal abscess; E43 Unspecified severe protein-calorie malnutrition; K86.3 Pseudocyst of pancreas; Z68.1 Body mass index [BMI] 19.9 or less, adult; R18.8 Other ascites; K63.2 Fistula of intestine; K86.0 Alcohol-induced chronic pancreatitis; D64.9 Anemia, unspecified; D73.5 Infarction of spleen; F10.20 Alcohol dependence, uncomplicated; F17.210 Nicotine dependence, cigarettes, uncomplicated; F41.9 Anxiety disorder, unspecified; G62.9 Polyneuropathy, unspecified; I10 Essential (primary) hypertension; J44.9 Chronic obstructive pulmonary disease, unspecified; Z79.899 Other long term (current) drug therapy; Z82.49 Family history of ischemic heart disease and other diseases of the circulatory system; Z88.8 Allergy status to other drugs, medicaments and biological substances
CPT/HCPCS: 36415; 71046; 71275; 74177; 80048; 80076; 81003; 81025; 83605; 83690; 85025; 85379; 85610; 87040; 96361; 96372; 96374; 96375; 99285

== ENCOUNTER → 2020-08-14 | Outpatient (CLI) | payer OTHER ==
[2020-08-14 11:23] LABS: Basophils % (A) 1 %; Eosinophils # (A) 0.1 k/uL (0-0.7); Eosinophils % (A) 1 %; HCT 37.5 % (34.0-46.0); HGB 12.9 gm/dL (11.4-16.0); Lymphocytes # (A) 2.4 k/uL (1.0-4.8); Lymphocytes % (A) 34 %; MCH 36.1 pg (25.0-35.0); MCHC 34.3 g/dL (31.0-37.0); MCV 105.3 fL (80.0-100.0); Macrocytosis Slight; Mean Platelet Volume 8.6; Monocytes # (A) 0.4 k/uL (0-1.0); Monocytes % (A) 5 %; Neutrophils # (A) 4.2 k/uL (1.3-7.7); Neutrophils % (A) 59 %; Platelet Count 214 k/uL (150-450); RBC 3.57 m/uL (3.80-5.40); RDW 11.2 % (11.5-15.5); WBC 7.1 k/uL (3.8-10.6)
== END | disposition home or self-care (01) ==
LOC: LABPAT 10:31
PROVIDERS: ATTEND Obstetrics & Gynecology Obstetrics
DX: Z01.812 Encounter for preprocedural laboratory examination (principal); Z01.810 Encounter for preprocedural cardiovascular examination; R87.612 Low grade squamous intraepithelial lesion on cytologic smear of cervix (LGSIL); N92.1 Excessive and frequent menstruation with irregular cycle; N84.1 Polyp of cervix uteri; I10 Essential (primary) hypertension
CPT/HCPCS: 36415; 85025; 93005

== ENCOUNTER 2020-08-25 10:09 | Day surgery (SDC) | payer OTHER ==
[2020-08-22 12:09] VITALS: BMI 15.1
--- NOTE | 2020-08-25 08:48 | P.HPOB ---
History of Present Illness H&P Date: 08/25/20 Chief Complaint: menometrorrhagia, endometrial polyp This is a 45-year-old female that presents with irregular heavy menstrual cycles. Patient had an ultrasound revealing a normal uterine size with possible endometrial polyps. Ovaries appeared normal bilaterally. Patient desires endometrial ablation. Patient in addition is due for a repeat Pap smear as she has a history of abnormals, she has been followed for low-grade Pap smears. Patient knows menses to be irregular in frequency, heavy flow with clots. Review of Systems Constitutional: Denies chills, Denies fatigue, Denies fever Ears, nose, mouth and throat: Denies headache Cardiovascular: Denies leg edema Respiratory: Denies dyspnea Gastrointestinal: Denies nausea, Denies vomiting Genitourinary: Denies Past Medical History Past Medical History: Hypertension Additional Past Medical History / Comment(s): Neuropathy in feet and hands. History of Any Multi-Drug Resistant Organisms: None Reported Past Surgical History: Hernia Repair Additional Past Surgical History / Comment(s): Dental surgery. Past Anesthesia/Blood Transfusion Reactions: Postoperative Nausea & Vomiting (PONV) Past Psychological History: Anxiety, PTSD Smoking Status: Current every day smoker Past Alcohol Use History: Daily Additional Past Alcohol Use History / Comment(s): Smokes 1/2 PPD, since 13 yrs old. Drinks 2 glasses of wine daily. Past Drug Use History: Marijuana Additional Drug Use History / Comment(s): Medical Marijuana use every evening. Aware no alcohol or Marijuana 24 hrs prior to procedure. - Past Family History Mother Family Medical History: Cancer, Hypertension Father Family Medical History: No Reported History Medications and Allergies Home Medications Medication Instructions Recorded Confirmed Type ALPRAZolam [Xanax] 0.25 mg PO BID 08/26/18 08/22/20 History Folic Acid 1 mg PO DAILY 08/26/18 08/22/20 History Gabapentin [Neurontin] 300 mg PO HS 08/26/18 08/22/20 History Magnesium Oxide [Mag-Ox] 400 mg PO DAILY 08/26/18 08/22/20 History Metoprolol Tartrate [Lopressor] 50 mg PO BID 08/26/18 08/22/20 History Multivitamins, Thera [Multivitamin 1 tab PO DAILY 08/22/20 08/22/20 History (formulary)] Allergies Allergy/AdvReac Type Severity Reaction Status Date / Time citalopram hydrobromide AdvReac Nausea & Verified 08/22/20 11:53 [From Celexa] Vomiting Exam Osteopathic Statement: *. No significant issues noted on an osteopathic structural exam other than those noted in the History and Physical/Consult. 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 Assessment and Plan (1) Menorrhagia Status: Acute Code(s): N92.0 - EXCESSIVE AND FREQUENT MENSTRUATION WITH REGULAR CYCLE SNOMED Code(s): 925681529 (2) Metrorrhagia Status: Acute Code(s): N92.1 - EXCESSIVE AND FREQUENT MENSTRUATION WITH IRREGULAR CYCLE SNOMED Code(s): 91152457 (3) Endometrial polyp Status: Acute Code(s): N84.0 - POLYP OF CORPUS UTERI SNOMED Code(s): 09626133 (4) LGSIL (low grade squamous intraepithelial dysplasia) Status: Acute Code(s): YTP0893 - SNOMED Code(s): 733109706 Plan: This 45-year-old female with irregular heavy menstrual cycles presents for hysteroscopy, dilation and curettage with endometrial ablation. In addition patient is due for a repeat Pap smear given her history of low-grade Paps. Patient will undergo exam under anesthesia with Pap smear. Surgery was reviewed extensively with the patient in the office worse reviewed and all questions were answered. Patient states understanding of the risks of infection, bleeding, failure of the procedure. Patient wishes to proceed.
[~2020-08-25 10:09] MED LIST: DEXAMETHASONE SOD PHOSPHATE 4 MG/ML 1 ML VIAL IV ONE; HYDROmorphone 0.5 MG/0.5 ML SYRINGE IVP PRN; LACTATED RINGERS 1,000 ML IV SCH; MIDAZOLAM 2 MG/2 ML VIAL IV PRN; ONDANSETRON 4 MG/2 ML VIAL IVP ONE; Pre Op ABX Message 1 EACH MISC MISCELLANE ONE; SCOPOLAMINE 1.5MG/72HR PATCH TRANSDERM ONE
[2020-08-25 10:31] VITALS: RESP 16
[2020-08-25] MEDS ORDERED: PROPOFOL 10 MG/ML 20 ML VIAL IV ONE (11:51)
[2020-08-25] MEDS ORDERED: fentaNYL (PF) 50 MCG/ML 2 ML AMP ONE (11:51)
[2020-08-25] MEDS ORDERED: LIDOCAINE 1% INJ 10MG/ML (20 ML MDV) ONE (11:51)
[2020-08-25] MEDS ORDERED: MIDAZOLAM 2 MG/2 ML VIAL ONE (11:51)
[2020-08-25] MEDS ORDERED: SILVER NITRATE APPLICATOR 1 EACH STICK..EA. TOPICAL ONE (12:18)
--- NOTE | 2020-08-25 12:23 | P.OP ---
Date of Procedure: 08/25/20 Preoperative Diagnosis: Heavy menstrual bleeding, endometrial polyp, LGSIL Postoperative Diagnosis: Same Procedure(s) Performed: Exam under anesthesia, Pap smear, hysteroscopy, dilation and curettage with endometrial ablation Anesthesia: MAC Surgeon: Lesley Castañeda Estimated Blood Loss (ml): 5 IV fluids (ml): 400 Urine output (ml): 50 Pathology: other (Endometrial curettings) Condition: stable Disposition: PACU Indications for Procedure: Heavy menstrual bleeding, history of abnormal Paps, repeat Pap smear is obtained Operative Findings: Proliferative endometrium with endometrial polyp. Grade 23 uterine procidentia is appreciated Description of Procedure: Patient is taken back to the operating suite where general anesthesia was obtained without difficulty by the anesthesia department. She is prepped and draped in the normal sterile fashion in the dorsal lithotomy position. Grade 2/3 procidentia is appreciated. All red rubber catheter was used to drain the bladder of yellow urine, a weighted speculum was placed in the posterior vaginal vault. The anterior lip of the cervix is easily visualized and grasped with a single-tooth tenaculum. A Pap smear is obtained. A the endocervical canal was then dilated the uterus is sounded and found to be 7 cm. The hysteroscope was placed through the cervix the above-noted finds were visualized. A sharp curettage was then performed. The specimen sent to pathology for analysis. The NovaSure device is opened and set to the appropriate measurements with a length of 4, width of 3.5, for a total cycle length of 81 seconds. After cavity assessment was passed the cycle was allowed to complete. After the cycle was complete the NovaSure device was removed without difficulty intact without difficulty. The cecal tooth tenaculum was taken off of the anterior lip of the cervix a small amount of bleeding was noted which was managed with silver nitrate. Hemostasis was appreciated after application. All instruments removed from the patient's vaginal vault. All counts were noted be correct 2 at the end of the procedure. Patient did tolerate procedure well and was taken the recovery room awake in stable condition.
[2020-08-25 12:31] VITALS: TEMP 97
[2020-08-25 13:29] VITALS: BP 99/68; PULSE 77
== END 2020-08-25 13:43 | disposition home or self-care (01) ==
LOC: OR 10:09
PROVIDERS: ATTEND Obstetrics & Gynecology Obstetrics
DX: N85.01 Benign endometrial hyperplasia (principal); N92.1 Excessive and frequent menstruation with irregular cycle; N92.0 Excessive and frequent menstruation with regular cycle; N84.0 Polyp of corpus uteri; I10 Essential (primary) hypertension; G62.9 Polyneuropathy, unspecified; Z98.890 Other specified postprocedural states; F41.9 Anxiety disorder, unspecified; F43.10 Post-traumatic stress disorder, unspecified; F17.210 Nicotine dependence, cigarettes, uncomplicated; Z80.9 Family history of malignant neoplasm, unspecified; Z82.49 Family history of ischemic heart disease and other diseases of the circulatory system; Z79.899 Other long term (current) drug therapy; Z88.8 Allergy status to other drugs, medicaments and biological substances
CPT/HCPCS: 81025; 88305; 58563; J2250; J1100; J2405; J2001; J3010; J2704